=== PATIENT | female | born 1955 | race Caucasian/White ===

== ENCOUNTER 2019-08-18 15:28 | Outpatient (CLI) | payer OTHER | END 2019-08-18 15:29 | disposition home or self-care (01) | LOC: LAB.S 15:28 | PROVIDERS: ATTEND Internal Medicine | DX: R05 Cough (principal); Z20.828 Contact with and (suspected) exposure to other viral communicable diseases | CPT/HCPCS: 81599 ==

== ENCOUNTER 2019-09-10 16:35 | Outpatient (CLI) | payer OTHER | END 2019-09-10 16:36 | disposition home or self-care (01) | LOC: LAB.S 16:35 | PROVIDERS: ATTEND Internal Medicine Rheumatology | DX: Z79.899 Other long term (current) drug therapy (principal) | CPT/HCPCS: 36415; 86704; 86803; 87340 ==